=== PATIENT | female | born 1965 | race Caucasian/White ===

== ENCOUNTER 2017-08-03 12:11 | Emergency (ER) | payer OTHER, SELFPAY ==
[2017-08-03 12:12] VITALS: BP 125/80; PULSE 116; RESP 14; TEMP 37.2; O2SAT 100; BMI 22.8
--- NOTE | 2017-08-03 12:42 | ED.VISSUMM ---
- ER Visit Summary Date of Service: 08/03/17 Chief Complaint: Left forehead pain History of Present Illness: The patient is a 52 F male history of anxiety disorder. Patient states for the last several weeks he said sharp shooting stabbing pain that lasts seconds in her forehead and scalp. She denies any falls or trauma. She denies any neurological symptoms. She denies any acute visual change or trouble walking or moving her arms or legs. She is on no blood thinners. There is no family history of brain aneurysms or intracranial bleeds. She saw her primary care physician who told her that he did not know what to do with that nondescript complaint and did not order any testing. She states these are very brief episodes that last seconds. And then resolved. Nothing particularly brings him on or makes them go away. She denies any nausea, fever, sinus congestion or recent trauma. Physical Examination: Well-appearing middle-age female. Vital signs stable afebrile. She does not look septic toxic or in any acute distress. H EENT exam normal. There is no frontal maxillary sinus tenderness is no signs of trauma to her face or scalp. Pupils round reactive light. Extra motions are intact. No facial droop. Normal speech. Neck nontender no lymphadenopathy. Lungs clear to auscultation bilaterally. Heart regular rate and rhythm no murmur rate about 100. Abdomen soft nontender. Extremities moves all 4. Neurovascularly intact. 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 Dorsi plantar flexion intact bilaterally. Fingertip to nose and heel to crespo all within normal limits. Neurologic exam is completely normal. She is awake alert oriented ?3. Normal speech. No droop. Fingertip to nose heel to crespo within normal limits as previously stated. NIH score is 0. She gets up from the bed and ambulates easily without any difficulty has a negative Romberg. Test Results: Because of the patient's she is a completely normal neurologic exam. These are very brief episodes with no neurologic or other physical exam findings. She is comfortable with no testing being done at this time. Emergency Department Course and Treatment: [] Treatment Plan: Patient will be referred to her primary care physician locally. She knows return if feeling worse. Disposition: Discharge Impression: Transient head pain of uncertain etiology This note was generated with [employer] dictation software. It may contain incorrect words, spelling, and punctuation that were not noted in review of the chart prior to signing ED Disposition - Plan for ED Patient: Chief Complaint: Headache Referrals: Aga Cheng PA-C [Primary Care Provider] -
--- NOTE | 2017-08-03 12:45 | ED.DCSUM_ITS ---
- ER Visit Summary Date of Service: 08/03/17 Chief Complaint: Left forehead pain History of Present Illness: The patient is a 52 F male history of anxiety disorder. Patient states for the last several weeks he said sharp shooting stabbing pain that lasts seconds in her forehead and scalp. She denies any falls or trauma. She denies any neurological symptoms. She denies any acute visual change or trouble walking or moving her arms or legs. She is on no blood thinners. There is no family history of brain aneurysms or intracranial bleeds. She saw her primary care physician who told her that he did not know what to do with that nondescript complaint and did not order any testing. She states these are very brief episodes that last seconds. And then resolved. Nothing particularly brings him on or makes them go away. She denies any nausea , fever, sinus congestion or recent trauma. Physical Examination: Well-appearing middle-age female. Vital signs stable afebrile. She does not look septic toxic or in any acute distress. H EENT exam normal. There is no frontal maxillary sinus tenderness is no signs of trauma to her face or scalp. Pupils round reactive light. Extra motions are intact. No facial droop. Normal speech. Neck nontender no lymphadenopathy. Lungs clear to auscultation bilaterally. Heart regular rate and rhythm no murmur rate about 100. Abdomen soft nontender. Extremities moves all 4. Neurovascularly intact. 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 Dorsi plantar flexion intact bilaterally. Fingertip to nose and heel to crespo all within normal limits. Neurologic exam is completely normal. She is awake alert oriented ?3. Normal speech. No droop. Fingertip to nose heel to crespo within normal limits as previously stated. NIH score is 0. She gets up from the bed and ambulates easily without any difficulty has a negative Romberg. Test Results: Because of the patient's she is a completely normal neurologic exam. These are very brief episodes with no neurologic or other physical exam findings. She is comfortable with no testing being done at this time. Emergency Department Course and Treatment: [] Treatment Plan: Patient will be referred to her primary care physician locally. She knows return if feeling worse. Disposition: Discharge Impression: Transient head pain of uncertain etiology This note was generated with [employer] dictation software. It may contain incorrect words, spelling, and punctuation that were not noted in review of the chart prior to signing ED Disposition - Plan for ED Patient: Chief Complaint: Headache Referrals: Aga Cheng PA-C [Primary Care Provider] -
--- NOTE | 2017-08-03 12:45 | ED.DEP ---
ED Disposition - Plan for ED Patient: Disposition: Home or Assisted Living Chief Complaint: Headache Referrals: Kj King MD [NON-STAFF] - 1-2 Weeks Additional Instructions: Follow-up with primary care physician. Next Return to ER feeling worse but today her exam is completely normal. This scalp and head pain may be secondary to inflammation of the nerve. I do not feel any testing today would be of benefit.
== END 2017-08-03 12:55 | disposition home or self-care (01) ==
PROVIDERS: Emergency Provider Emergency Medicine; Family Provider Family Medicine; PCP Family Medicine
DX: R51 Headache (principal); F41.9 Anxiety disorder, unspecified; K21.9 Gastro-esophageal reflux disease without esophagitis; Z90.49 Acquired absence of other specified parts of digestive tract; Z90.710 Acquired absence of both cervix and uterus; Z79.82 Long term (current) use of aspirin; Z79.899 Other long term (current) drug therapy; Z72.0 Tobacco use
CPT/HCPCS: 99282

== ENCOUNTER → 2017-10-09 13:25 | Outpatient (CLI) | payer OTHER, SELFPAY ==
--- NOTE | 2017-10-09 13:27 | STEWCON_ITS ---
Reason For Study: CHEST PAIN Stress Results Protocol: Cole Protocol Maximum Predicted HR: 168 bpm Target HR: 143 bpm% Max imum Predicted HR: 93 % DurationHeart Rate Stage (mm:ss) (bpm) BP BASELINE 75 130/86 STAGE 1 3:00 12 3 110/64 STAGE 2 3:00 13 3 120/70 STAGE 3 3:00 14 6 132/74 STAGE 4 1:00 15 7 / RECOVERY 97 110/60 Stress Duration: 10:00 mm:ss Maximum Stress HR: 157 bpmME TS: 13 Baseline Echocardiogram Findings Stress Echo Wall motion Data Resting WMIntermediate WMStress WM Resting Wall Motion Wall Motion Stress All segments Normal. All segments Hyperkinetic. Ejection Fraction 60 %. Ejection Fraction 70 %. Stress Results Heart rate response: appropriate Blood pressure response: normal resting BP - appropriate response Arrhythmias: none Functional capacity: good Stopped secondary to: leg discomfort. EKG Data The baseline ECG displays normal sinus rhythm. Peak exercise ECG: No obvious ECG changes. Symptoms with Stress No c/o chest discomfort during exercise / recovery. Interpretation Summary Negative (Adequate) Stress Echocardiogram Ordering Physician: Williams Caal Referring Physician: Williams Caal Performed By: Cynthia Hansen, KATIE, RVT
== END ==
PROVIDERS: Family Provider Family Medicine; PCP Family Medicine; Visit Provider Nurse Practitioner Family
DX: R07.9 Chest pain, unspecified (principal)
CPT/HCPCS: 93017; 93350

== ENCOUNTER 2018-10-16 14:38 | Emergency (ER) | payer OTHER, SELFPAY ==
[2018-10-16 14:38] VITALS: BP 122/101; BP 130/91; PULSE 100; PULSE 104; RESP 16; RESP 18; TEMP 36.7; O2SAT 100; O2SAT 97; BMI 23.8
--- NOTE | 2018-10-16 14:55 | RAD_ITS ---
STUDY: X-RAY CHEST REASON FOR EXAM: Female, 53 years old. Tachycardia TECHNIQUE: Single AP portable view of the chest. COMPARISON: 2015 FINDINGS: EKG leads overlie the chest The lungs are clear and expanded. There is no demonstrated pleural abnormality. Normal size heart. Normal mediastinum and thad. Normal visualized pulmonary arteries. Normal visualized aortic arch and descending thoracic aorta. Normal visualized thoracic spine. Normal visualized ribs, clavicles, and shoulders. There is no demonstrated abnormality of the visualized soft tissue structures of the upper abdomen. RAD/Chest 1 View (Portable) IMPRESSION: Normal x-ray examination of the chest. Electronically Signed: Abhay Bueno MD at 15:39 EDT , Service support ,
--- NOTE | 2018-10-16 14:55 | EKG12_ITS ---
Test Reason : PALPITATIONS Blood Pressure : / mmHG Vent. Rate : 086 BPM Atrial Rate : 086 BPM P-R Int : 146 ms QRS Dur : 082 ms QT Int : 380 ms P-R-T Axes : 063 013 064 degrees QTc Int : 454 ms Normal sinus rhythm Normal ECG Confirmed by ALYCE CUTLER ([id number]), assistant film editor RAJEEV ONOFRE ([id number]) on 10/21/2018 2:12:22 PM Referred By: Confirmed By:ALYCE CUTLER
[2018-10-16 14:56] VITALS: O2SAT 98
[2018-10-16 15:06] LABS: Absolute Lymphocyte Count 2.51 X10^3/ul (0.83-4.51); Absolute Neutrophil Count 6.6 X10^3/uL (2.0-7.7); Basophil# 0.03 X10^3/uL; Basophil% 0.3 % (0-1); Eosinophil# 0.11 X10^3/uL; Eosinophils% 1.1 % (0-5); Hemoglobin 14.9 g/dl (12.0-15.0); Lymphocyte # 2.51 X10^3/ul (4.0); Lymphocyte % 25.7 % (19-41); Mean Corp Hgb Conc 33.1 g/gl (32-36); Mean Corpuscular Hgb 29.6 pg (27.0-32.0); Mean Corpuscular Volume 89.5 fL (81-99); Mean Platelet Vol. 11.1 fl (6.2-12.0); Monocyte% 5.1 % (0-10); Neutrophil % 67.7 % (47-70); Platelet Count 310 K/mm3 (150-450); RBC Distribution Width CV 13.8 % (11.6-14.6); RBC Distribution Width SD 44.5 fl (35.1-43.9); Red Blood Count 5.03 M/mm3 (4.2-5.4); White Blood Count 9.8 K/mm3 (4.4-11.0)
[2018-10-16 15:09] LABS: POSITIVE COUNT NO; POSITIVE DIFFERENTIAL NO; POSITIVE MORPHOLOGY NO
--- NOTE | 2018-10-16 15:36 | ED.DCSUM_ITS ---
- ER Visit Summary Date of Service: 10/16/18 Chief Complaint: Palpitations and fatigue History of Present Illness: The patient is a 53 F history of anxiety and reflux. Patient states she just felt tired for the last several weeks. Today she felt like her heart rate was accelerated. She denies any shortness of breath. Denies any chest pain. No exertional symptoms. Says she is worn a Holter monitor for 30 days without any diagnosis. She denies any vomiting, diarrhea, melena or leg swelling. Physical Examination: Well-appearing middle-aged female. Vital signs are stable and afebrile. Pulse ox 98% on room air no signs of hypoxia. HEENT normal. Neck nontender no JVD or lymphadenopathy. Lungs clear to auscultation bilaterally. Heart regular rhythm no murmur. Abdomen is soft and nontender. Patient is moving all 4 extremities. Neurovascular intact. There is no edema. Equal symmetrical radial pulses. Neurologically awake alert with no focal motor deficits. Test Results: CBC normal. BMP normal. Troponin normal. EKG sinus rhythm rate 86 no acute abnormality. Chest x-ray portable one view read both myself and radiologist is unremarkable. TSH was abnormal. The number was 7.01 which is elevated which could signal she has hypothyroidism. She and I discussed this and she will follow-up to have this rechecked. Emergency Department Course and Treatment: Patient with unremarkable exam with a normal sinus rhythm. Complaining of palpitations and fatigue. Repeat exam at 1620 patient is doing well. We discussed all of her test results and follow-up to have her thyroid rechecked. Treatment Plan: Follow-up with her primary care provider for repeat evaluation of her thyroid. I do have that group on page. Disposition: Discharge Impression: Acute palpitations of uncertain etiology Elevated TSH needs further evaluation for possible new onset hypothyroidism. Fatigue This note was generated with [employer] dictation software. It may contain incorrect words, spelling, and punctuation that were not noted in review of the chart prior to signing ED Disposition - Plan for ED Patient: Disposition: Home or Assisted Living Instructions: ED Palpitations Referrals: [facility],Out of [NON-STAFF] - 1 Week if not improving Additional Instructions: All your labs, EKG and chest x-ray were normal today. The only lab that was abnormal was your TSH which is a test for your thyroid and that number was 7.01 which could mean that you are hypothyroid and may need to be started on thyroid medications. This TSH level along with your specific thyroid hormones need to be rechecked. If they are abnormal then you will need to start on thyroid medication most likely. Follow-up with your primary care provider and have your TSH and thyroid hormones rechecked.
--- NOTE | 2018-10-16 15:48 | ED.DEP ---
ED Disposition - Plan for ED Patient: Disposition: Home or Assisted Living Instructions: ED Palpitations Referrals: [facility],Out of [NON-STAFF] - 1 Week if not improving Additional Instructions: All your labs, EKG and chest x-ray were normal today. The only lab that was abnormal was your TSH which is a test for your thyroid and that number was 7.01 which could mean that you are hypothyroid and may need to be started on thyroid medications. This TSH level along with your specific thyroid hormones need to be rechecked. If they are abnormal then you will need to start on thyroid medication most likely. Follow-up with your primary care provider and have your TSH and thyroid hormones rechecked.
[2018-10-16 15:52] LABS: Anion Gap 5 (5-15); BUN 14 mg/dL (7-18); BUN/Creat Ratio 17.4 RATIO (10-20); Chloride 107 mmol/L (98-107); EST Glomerular Filtration Rate 79 mL/min (>60); Est Glom Filt Rate - Afr Amer 96 mL/min (>60); Estimated Creatinine Clearance 61.37 ml/min; Glucose 92 mg/dL (74-106); Potassium 4.2 mmol/L (3.5-5.1); Sodium Level 139 mmol/L (136-145)
[2018-10-16 15:58] VITALS: BP 116/74; PULSE 75; RESP 15; O2SAT 96
[2018-10-16 15:58] LABS: Thyroid Stim Hormone (TSH) 7.01 uIU/mL (0.358-3.74)
[2018-10-16 16:09] VITALS: PULSE 86; RESP 14; O2SAT 98
[2018-10-16 16:43] VITALS: BP 122/84; PULSE 79; RESP 16; O2SAT 99
== END 2018-10-16 16:44 | disposition home or self-care (01) ==
PROVIDERS: Emergency Provider Emergency Medicine; Family Provider Family Medicine; PCP Family Medicine
DX: R00.2 Palpitations (principal); R53.83 Other fatigue; R79.89 Other specified abnormal findings of blood chemistry; F41.9 Anxiety disorder, unspecified; K21.9 Gastro-esophageal reflux disease without esophagitis; Z79.82 Long term (current) use of aspirin; Z79.899 Other long term (current) drug therapy; Z72.0 Tobacco use
CPT/HCPCS: 71045; 80048; 84443; 84484; 85025; 93005; 99284; A4216

== ENCOUNTER → 2019-04-25 15:58 | Outpatient (CLI) | payer OTHER, SELFPAY ==
[2019-04-18 15:33] VITALS: BMI 23.4
[2019-04-25 17:40] LABS: AST(SGOT) 18 U/L (15-37); Alanine Aminotransfer ALT/SGPT 25 U/L (13-56); Albumin, Serum 3.9 g/dL (3.2-5.0); Alkaline Phosphatase 103 U/L (45-117); Bilirubin, Direct 0.09 mg/dL (0.00-0.30); Cholesterol 221 mg/dL (200); Globulin 3.7 g/dL (2.2-4.2); High Density Lipoprotein 61 mg/dL; Protein, Total 7.6 g/dL (6.4-8.2); Triglycerides 147 mg/dL; Very Low Density Lipoprotein 29 mg/dL (5-40)
== END ==
PROVIDERS: Family Provider Family Medicine; PCP Family Medicine; Referring Provider Internal Medicine Cardiovascular Disease; Visit Provider Internal Medicine Cardiovascular Disease
DX: E78.00 Pure hypercholesterolemia, unspecified (principal)
CPT/HCPCS: 36415; 80061; 80076

== ENCOUNTER → 2019-04-29 13:42 | Outpatient (CLI) | payer OTHER, SELFPAY ==
[2019-04-18 15:33] VITALS: BMI 23.4
--- NOTE | 2019-04-29 13:44 | CT_ITS ---
STUDY: CT ABDOMEN AND PELVIS WITH AND WITHOUT CONTRAST REASON FOR EXAM: Female, 53 years old. Hematuria RADIATION DOSAGE (If Supplied By Facility): CTDIvol = ( 10.93 ) mGy, DLP = ( 1295.70 ) mGycm TECHNIQUE: Transaxial images were obtained from the dome of the diaphragm to the symphysis pubis without oral contrast. IV Isovue 370 100 was administered. Venous phase and delayed phase images were acquired. Sagittal and coronal images were reconstructed. Individualized dose optimization techniques were used for this CT. COMPARISON: None. FINDINGS: The visualized lung bases are unremarkable. The visualized portions of the heart are within normal limits. Normal liver. There are surgical clips in the gallbladder fossa consistent with a prior cholecystectomy. Normal spleen. Normal pancreas. Normal bilateral adrenal glands. Normal right kidney. Normal left kidney. No renal stones are identified. No enhancing renal masses are identified. Delayed phase imaging demonstrates no focal lesion within the opacified portions of the renal collecting system. Normal visualized stomach. Normal small intestine. Normal colon. The appendix is visualized and appears normal. There is minimal atherosclerotic calcification of the abdominal aorta, without a demonstrated aneurysm. Normal inferior vena cava. Normal retroperitoneum. Normal urinary bladder. There is absence of the uterus consistent with a prior hysterectomy. Normal abdominal wall. Normal osseous structures. CT/CT Abd/Pelvis W/WO Contrast IMPRESSION: No acute process to explain patient's hematuria. No renal stones are identified. No enhancing renal masses are identified. Delayed phase imaging demonstrates no focal lesion within the opacified portions of the renal collecting system. Electronically Signed: Terrence Winchester, at 14:56 EST Tel , Service support ,
--- NOTE | 2019-04-29 14:16 | ECHOD_ITS ---
Reason For Study: fatigue Procedure This was a 2D Doppler, Color Flow transthoracic echocardiogram. Exam performed in department. Left Ventricle Normal LV size. Left ventricular systolic function is normal. The estimated ejection fraction is 60 %. No evidence for diastolic dysfunction. No regional wall motion abnormalities noted. Right Ventricle Normal RV size. Normal systolic function. Atria Normal left atrium. Normal right atrium. No doppler evidence for ASD. Mitral Valve There is no mitral annular calcification. Normal mitral valve. Trivial mitral valve insufficiency. Tricuspid Valve Normal tricuspid valve. Trivial tricuspid valve insufficiency. Right ventricular systolic pressure estimated to be 27 mmHg. Aortic Valve Trisinus/trileaflet aortic valve. Normal aortic valve. Pulmonic Valve The pulmonic valve is not well visualized. Great Vessels Normal sized aortic root. Pericardium/Pleural No pericardial effusion. MMode/2D Measurements & Calculations LVIDd: 3.6 cm IVSd: 0.83 cm Ao root diam: 3.1 cm LVIDs: 2.3 cm LVPWd: 0.77 cm RVDd: 2.2 cm FS: 34.8 % LAV(MOD-bp): 17.7 ml LA A4 area: 9.7 cm2 LA dimension(2D): 2.3 cm LAV(MOD-bp) Indexed: 11.3 ml/m2 LAV(MOD-sp2): 17.4 ml LAV(MOD-sp4): 17.9 ml RA A4 area: 6.8 cm2 Time Measurements MV dec time: 0.21 sec Doppler Measurements & Calculations MV E max marcelo: 62.0 cm/sec Lat Peak E' Marcelo: 8.0 cm/sec Med Peak E' Marcelo: 8.3 cm/sec MV A max marcelo: 59.0 cm/sec E/E' lat: 7.7 E/E' med: 7.5 MV E/A: 1.1 Ao V2 max: 127.4 cm/sec LV V1 max: 103.5 cm/sec PA V2 max: 77.6 cm/sec Ao max P.5 mmHg LV V1 max P.3 mmHg TR max marcelo: 245.0 cm/sec TR max P.0 mmHg Interpretation Summary Left ventricular systolic function is normal. The estimated ejection fraction is 60 %. Trivial mitral valve insufficiency. Trivial tricuspid valve insufficiency. Right ventricular systolic pressure estimated to be 27 mmHg. No evidence for diastolic dysfunction. Ordering Physician: Tramaine Velez Referring Physician: Aga Cheng Performed By: Serina Goetz, KATIE, RVT
== END ==
PROVIDERS: Family Provider Family Medicine; PCP Family Medicine; Referring Provider Internal Medicine Cardiovascular Disease; Visit Provider Internal Medicine Cardiovascular Disease
DX: R31.9 Hematuria, unspecified (principal); E03.9 Hypothyroidism, unspecified; E78.00 Pure hypercholesterolemia, unspecified; R00.2 Palpitations; R53.83 Other fatigue
CPT/HCPCS: 74178; 93306; Q9967

== ENCOUNTER → 2020-12-23 09:35 | Outpatient (CLI) | payer OTHER, SELFPAY ==
[2020-04-19 15:57] VITALS: BMI 23.8
[2020-12-23 10:49] LABS: AST(SGOT) 19 U/L (15-37); Alanine Aminotransfer ALT/SGPT 26 U/L (13-56); Albumin, Serum 3.8 g/dL (3.2-5.0); Alkaline Phosphatase 111 U/L (45-117); Bilirubin, Direct 0.11 mg/dL (0.00-0.30); Cholesterol 252 mg/dL (200); Globulin 3.7 g/dL (2.2-4.2); High Density Lipoprotein 65 mg/dL; Protein, Total 7.5 g/dL (6.4-8.2); Triglycerides 193 mg/dL; Very Low Density Lipoprotein 39 mg/dL (5-40)
== END ==
PROVIDERS: PCP Family Medicine; Referring Provider Internal Medicine Cardiovascular Disease; Visit Provider Internal Medicine Cardiovascular Disease
DX: E78.00 Pure hypercholesterolemia, unspecified (principal)
CPT/HCPCS: 36415; 80061; 80076

== ENCOUNTER → 2021-03-08 16:46 | Outpatient (CLI) | payer OTHER, SELFPAY ==
--- NOTE | 2021-03-08 16:50 | CT_ITS ---
HISTORY: Lung cancer screening -- 34 pack yr history;current smoker; asymptomatic EXAMINATION: CT Low Dose CT Chest for Lung Cancer Screening TECHNIQUE: Helically acquired images were obtained of the chest. A radiation dose optimization technique was used for this scan. IV Contrast dosage and agent: None. COMPARISON: None FINDINGS: LUNGS, PLEURA AND LARGE AIRWAYS: Scattered apical bullous changes without masses, consolidation, or edema. No pleural effusion or thickening. No pneumothorax. THYROID: No thyroid lesions. HEART AND PERICARDIUM: Heart size is normal. No pericardial effusion. VESSELS: 3.3 cm ectasia ascending aorta. MEDIASTINUM AND GINGER: No mediastinal or hilar adenopathy. Esophagus is unremarkable. No hiatal hernia. UPPER ABDOMEN: Cholecystectomy. BONES: No acute or aggressive abnormality. CT/Low Dose CT Lung Screening IMPRESSION: No acute pulmonary findings. No lung nodules. Lung-RADS score 1. Recommend routine annual screening. Individualized dose optimization techniques were used for this CT. at 1750 Reported and signed by: Gil Mcgee MD Electronically Signed: Gil Mcgee MD at 17:49 EDT Tel , Service support ,
== END ==
PROVIDERS: PCP Family Medicine; Referring Provider Nurse Practitioner Family; Visit Provider Nurse Practitioner Family
DX: Z12.2 Encounter for screening for malignant neoplasm of respiratory organs (principal); F17.200 Nicotine dependence, unspecified, uncomplicated
CPT/HCPCS: 71271

== ENCOUNTER → 2021-06-08 11:33 | Outpatient (CLI) | payer OTHER, SELFPAY ==
[2021-06-08 12:29] LABS: AST(SGOT) 25 U/L (15-37); Alanine Aminotransfer ALT/SGPT 36 U/L (13-56); Albumin, Serum 3.8 g/dL (3.2-5.0); Alkaline Phosphatase 105 U/L (45-117); Bilirubin, Direct 0.07 mg/dL (0.00-0.30); Cholesterol 173 mg/dL (200); Globulin 3.8 g/dL (2.2-4.2); High Density Lipoprotein 67 mg/dL; Protein, Total 7.6 g/dL (6.4-8.2); Triglycerides 155 mg/dL; Very Low Density Lipoprotein 31 mg/dL (5-40)
== END ==
PROVIDERS: PCP Family Medicine; Visit Provider Internal Medicine Cardiovascular Disease
DX: E78.00 Pure hypercholesterolemia, unspecified (principal)
CPT/HCPCS: 36415; 80061; 80076

== ENCOUNTER → 2022-06-01 | Outpatient (CLI) | payer OTHER, SELFPAY ==
--- NOTE | 2022-06-01 10:31 | STE_ITS ---
Reason For Study: Chest Pain Stress Results Protocol: Stress Echocardiogram-Cole Protocol Maximum Predicted HR: 164 bpm Target HR: 139 bpm % Maximum Predicted HR: 86 % DurationHeart Rate Stage (mm:ss) (bpm) BP Comment Baseline 87 106/76Pt denies any chest pain Stage 1 3:00 129 102/70Patient denies any chest pain Stage 2 3:00 130 106/72Patient denies any chest pain Stage 3 2:59 141 110/72Patient complains of mild chest tightness midsternal rated 2/10. Recovery 92 118/68Patient denies any chest pain or palpitations. Stress Duration: 8:59 mm:ss Maximum Stress HR: 141 bpm METS: 10 Baseline Echocardiogram Findings Stress Echo Wall motion Data Resting WM Intermediate WM Stress WM Resting Wall Motion Wall Motion Stress All segments Normal. All segments Hyperkinetic. Ejection Fraction 55 %. Ejection Fraction 65 %. Stress Results Heart rate response: Technically adequate (percent predicted maximal heart rate greater than 85%) Blood pressure response: Normal resting blood pressure-appropriate response Cardiac rhythm: No obvious cardiac ectopy/dysrhythmia Functional capacity: Good Stopped secondary to: Chest discomfort. EKG Data Baseline ECG: Normal sinus rhythm. Peak exercise ECG: No obvious ECG changes. Symptoms with Stress The patient noted chest tightness at peak exercise. ECHO/Stress Test Echo w/o Contrast Interpretation Summary Negative (technically adequate: percent predicted maximal heart rate greater th an 85%) stress echocardiogram Ordering Physician: Tramaine Velez Referring Physician: Tramaine Velez Performed By: Toñito Nails RCS
== END | disposition home or self-care (01) ==
LOC: CVS 10:29
PROVIDERS: PCP Family Medicine; Referring Provider Internal Medicine Cardiovascular Disease; Visit Provider Internal Medicine Cardiovascular Disease
DX: R07.9 Chest pain, unspecified (principal); E78.00 Pure hypercholesterolemia, unspecified
CPT/HCPCS: 93017; 93350

== ENCOUNTER 2022-10-13 14:19 | Emergency (ER) | payer OTHER, SELFPAY ==
[2022-10-13 14:21] VITALS: BP 140/76; PULSE 94; RESP 18; TEMP 35.8; O2SAT 100; BMI 22.8
[2022-10-13 15:04] LABS: Absolute Lymphocyte Count 3.75 X10^3/uL (0.83-4.51); Absolute Neutrophil Count 7.8 X10^3/uL (2.0-7.7); Basophil# 0.05 X10^3/uL; Basophil% 0.4 % (0-1); Eosinophil# 0.16 X10^3/uL; Eosinophils% 1.3 % (0-5); Hematocrit 44.9 % (37-47); Hemoglobin 14.4 g/dL (12.0-15.0); Lymphocyte # 3.75 X10^3/ul (0.83-4.51); Lymphocyte % 29.8 % (19-41); Mean Corp Hgb Conc 32.1 g/dL (32-36); Mean Corpuscular Hgb 30.1 pg (27.0-32.0); Mean Corpuscular Volume 93.9 fL (81-99); Mean Platelet Vol. 10.7 fl (6.2-12.0); Monocyte# 0.84 X10^3/uL; Monocyte% 6.7 % (0-10); NRBC Flagged by Analyzer 0 % (0-5); Neutrophil # 7.75 X10^3/uL (2.7-7.7); Neutrophil % 61.6 % (47-70); Platelet Count 286 K/mm3 (150-450); RBC Distribution Width CV 12.8 % (11.6-14.6); Red Blood Count 4.78 M/mm3 (4.2-5.4); White Blood Count 12.6 K/mm3 (4.4-11.0)
[2022-10-13 15:07] LABS: Bacteria 0 SEEN /hpf (None Seen); Mucous, Urine 0 SEEN /hpf (<or=2+); Red Blood Cells-Urine 0 SEEN /hpf (0-5); Squamous Epithelial Cells - UA 0 SEEN /hpf (5-10); White Blood Cells 0 SEEN /hpf (0-5)
[2022-10-13 15:11] LABS: Color, Urine Yellow (Yellow); Glucose, Dipstick Normal (Normal); Ketone-Dipstick Negative (Negative); Leukocyte Esterase-Dipstick Negative /ul (Negative); Nitrite-Dipstick Negative (Negative); Occult Blood-Urine 10 /ul (Negative); Protein-Dipstick Negative (Negative); Urine Bilirubin Dipstick Negative (Negative); Urine Clarity Clear (Clear); Urine Urobilinogen Normal (Normal); Urine pH 6.5 (5.0 - 8.0)
[2022-10-13 15:17] LABS: Anion Gap 6 (5-15); BUN 16 mg/dL (7-18); BUN/Creat Ratio 19.6 RATIO (10-20); Calcium,Total 9.7 mg/dL (8.5-10.1); Chloride 107 mmol/L (98-107); Creatinine, Serum 0.82 mg/dL (0.55-1.02); EST Glomerular Filtration Rate 77 mL/min (>60); Est Glom Filt Rate - Afr Amer 93 mL/min (>60); Estimated Creatinine Clearance 57.12 ml/min; Glucose 89 mg/dL (74-106); Potassium 3.9 mmol/L (3.5-5.1); Sodium Level 140 mmol/L (136-145)
--- NOTE | 2022-10-13 15:56 | CT_ITS ---
STUDY: CT ABDOMEN AND PELVIS WITH CONTRAST REASON FOR EXAM: Female, 57 years old. Lower abdominal pain greater on the right side. RADIATION DOSAGE (If Supplied By Facility): CTDIvol = ( 13.15 ) mGy, DLP = ( 475.00 ) mGycm TECHNIQUE: IV 100mL Isovue-370 was administered. Transaxial images were obtained from the dome of the diaphragm to the symphysis pubis. Multiplanar coronal and sagittal images were reformatted. Individualized Dose Optimization Techniques Were Used For This CT. COMPARISON: April 29, 2019 FINDINGS: The visualized lung bases are unremarkable. The visualized portions of the heart are within normal limits. Normal liver. There are surgical clips in the gallbladder fossa consistent with a prior cholecystectomy. Normal spleen. Normal pancreas. Normal bilateral adrenal glands. Normal visualized stomach. There is fluid in minimally distended distal small bowel loops. The terminal ileum appears normal. Wandering cecum which lies below the proximal transverse colon. The colon is otherwise unremarkable. The appendix is visualized and appears normal. Normal abdominal aorta. No retroperitoneal adenopathy. Normal right kidney. Normal left kidney. Normal visualized ureters. Normal urinary bladder. Uterus is not visualized. There is soft tissue density along the pelvic side wall centimeter retained ovaries. No pelvic lymphadenopathy. No free air or free fluid is seen within the peritoneal cavity. Normal abdominal wall. Stable degenerative changes of the lumbar spine. CT/Abdomen/Pelvis W IV Cont ONLY IMPRESSION: 1. Mildly prominent distal small bowel loops. Question enteritis. 2. Normal appendix. 3. No other major interval change when compared to the prior examination. Electronically Signed: Bob Zazueta DO at 16:37 EDT Reading Location ID and State: [address] [place] [address] Tel [phone], Service support ,
--- NOTE | 2022-10-13 15:57 | EDS_ITS ---
HPI HPI - GI History of Present Illness Chief Complaint: Abd Pain Informant: patient Narrative Narrative: Patient comes in with complaint of lower abdominal pain. Patient states that her pain started on Sunday. It was slow onset but then got progressively worse. It seemed to be cramping but never go away. She actually left work early on Sunday. Its always been in the low mid to right lower quadrant area. She did go home and try a saline enema. She had moderate stool with that but not a huge amount. But the pain did get better. She states that helped the discomfort but it still going on. It is never improved. It has not gotten as bad as it was Sunday though. She occasionally has some mild nausea but she is able to eat and drink. No blood in the stool. She has never had an obstruction. She has had cholecystectomy and hysterectomy but not oophorectomy. She still has her appendix. No history of chronic bowel disease. She has no urinary symptoms such as change in color or odor or frequency. No blood seen. She has never had a fever that she knows of. Other than this discomfort in the lower abdomen she feels fine. Medication prescription list was reviewed on the computer. None of those are new or different. [facility] Medical History Chest pressure Emphysema lung Encounter for screening for malignant neoplasm of lung in current smoker with 30 pack year history or greater Fatigue Hypothyroidism Palpitations Pure hypercholesterolemia Home Medications aspirin 81 mg chewable tablet 81 mg PO DAILY 08/03/17 [History Last Taken 10/16/18] venlafaxine 75 mg tablet 75 mg PO DAILY 08/03/17 [History Last Taken 10/16/18] levothyroxine 50 mcg tablet 50 mcg PO DAILY 04/18/19 [History Last Taken Unknown] atorvastatin 20 mg tablet 20 mg PO QHS #30 tabs 01/24/22 [Rx Last Taken Unknown] dicyclomine 10 mg capsule 20 mg PO TIDAC PRN abdominal pain #15 CAPSULES 10/13/22 [Rx Last Taken Unknown] ondansetron 4 mg disintegrating tablet 4 mg PO Q8H PRN PRN Nausea #10 tabs 10/13/22 [Rx Last Taken Unknown] Allergy/AdvReac Type Severity Reaction Status Date / Time No Known Allergies Allergy Verified 10/13/22 14:21 Family History Father Myocardial infarction Mother CAD (coronary artery disease) Renal failure Daughter CAD (coronary artery disease) Other Heart disease Surgical History History of left heart catheterization (LHC) (~03/04/09) History of tonsillectomy Hx of cholecystectomy S/P bladder repair S/P GABINO (total abdominal hysterectomy) Social History Smoking Status: Current every day smoker tobacco type: cigarettes Tobacco: How many years used: 34 second hand exposure: No alcohol intake: current alcohol intake frequency: a few times a month Alcohol type: beer and wine substance use type: does not use caffeine: Yes Type: coffee what type of physical activity do you participate in: none emanuel/hoahaoism: Bahai seatbelt use: always do you feel safe at home: Yes ROS ROS ED Constitutional Constitutional ED: Denies chills, fever(s) or subjective ENT ENT ED: Denies sore throat Cardiovascular Cardiovascular: Denies chest pain or palpitations Respiratory/Chest Respiratory/Chest: Denies cough or dyspnea Gastrointestinal Gastrointestinal: Reports abdominal pain, diarrhea and nausea; Denies vomiting Genitourinary Genitourinary ED: Denies dysuria or hematuria Musculoskeletal Musculoskeletal: Denies back pain Integumentary Denies rash Neurologic Neurologic: Denies paresthesias or weakness Endocrine Endocrinology: Denies polydipsia or polyuria Hematologic/Lymphatic Hematologic/Lymphatic: Denies easy bleeding or easy bruising Allergic/Immunologic Allergic/Immunologic ED: Denies urticaria EXAM Physical Exam Narrative Exam Narrative: CONSTITUTIONAL: Patient is nontoxic in appearance. The patient looks comfortable. HEENT: No notable trauma. Mucous membranes minimally dry. No sinus tenderness. No indication of pain with swallowing. EYES: No conjunctival injection. No proptosis. No icterus CARDIOVASCULAR: Regular rate. Regular rhythm. No notable murmur. No JVD. RESPIRATORY: No respiratory distress. Breathing is unlabored. No wheezes. No pain with a deep breath. GASTROINTESTINAL: Not distended. Bowel sounds are slightly increased. She does have some mild lower mid and lower right tenderness. But she has no guarding. No rebound. No palpable mass. No bruit. GENITOURINARY: No CVA tenderness. MUSCULOSKELETAL: Atraumatic. No peripheral edema. No cord. No tenderness along the deep venous system. No asymmetry. NEUROLOGICAL: Patient is alert and appropriate. No focal deficit noted. SKIN: No noted rashes. No diaphoresis. Not jaundiced. PSYCHIATRIC: Patient is calm. Mood is appropriate. Const Vital Signs: 10/13/22 14:21 Temperature 96.5 F L Temperature Source Temporal Pulse Rate 94 Respiratory Rate 18 Blood Pressure 140/76 H Blood Pressure Mean 97 Pulse Ox 100 Oxygen Delivery Method Room Air MDM MDM MDM Narrative Medical decision making narrative: Patient CBC shows just a slight elevation of her white count at 12.6 which is nonspecific. Patient's electrolytes show no marked abnormalities. Patient urinalysis is clean shows no sign of infection. My independent interpretation of her CT of the abdomen shows no sign of diverticulitis. There does appear to be some slight increased fluid in the small bowel but does not look to be obstruction. Final reading sees mildly prominent small bowel distal loops questioning enteritis. Patient's symptoms are of a sense of fullness. Her pain is better than it was when it started. I think this should be self-limited. We will get her Zofran if needed for nausea. I will give her Bentyl to use sparingly if she has cramps. She states she really does not want anything for pain because its not that bad but I will write it just so she has an option. We also discussed coming back if she is developing worsening pain, vomiting fevers blood in the stool or any other concerns. Lab Data Attestation: I reviewed the patient's lab results. Labs: Laboratory Results - last 24 hr 10/13/22 10/13/22 10/13/22 15:00 15:00 15:00 WBC 12.6 H RBC 4.78 Hgb 14.4 Hct 44.9 MCV 93.9 MCH 30.1 MCHC 32.1 RDW Std Deviation 44.0 H RDW Coeff of Rajesh 12.8 Plt Count 286 MPV 10.7 Immature Gran % (Auto) 0.200 Neut % (Auto) 61.6 Lymph % (Auto) 29.8 Allen % (Auto) 6.7 Eos % (Auto) 1.3 Baso % (Auto) 0.4 Absolute Neuts (auto) 7.8 H Absolute Lymphs (auto) 3.75 Nucleated RBC % 0 Sodium 140 Potassium 3.9 Chloride 107 Carbon Dioxide 27.0 Anion Gap 6 BUN 16 Creatinine 0.82 Estim Creat Clear Calc 57.12 Est GFR (MDRD) Af Amer 93 Est GFR (MDRD) Non-Af 77 BUN/Creatinine Ratio 19.6 Glucose 89 Calcium 9.7 Urine Color Yellow Urine Clarity Clear Urine pH 6.5 Ur Specific Mobile 1.030 Urine Protein Negative Urine Glucose (UA) Normal Urine Ketones Negative Urine Occult Blood 10 H Urine Nitrite Negative Urine Bilirubin Negative Urine Urobilinogen Normal Ur Leukocyte Esterase Negative Urine RBC 0 SEEN Urine WBC 0 SEEN Ur Squamous Epith Cells 0 SEEN Urine Bacteria 0 SEEN Urine Mucus 0 SEEN Radiography Diagnostic Testing: Clinical Impression(s) from Imaging Studies Abdomen/Pelvis CT 10/13/22 15:56 IMPRESSION: 1. Mildly prominent distal small bowel loops. Question enteritis. 2. Normal appendix. 3. No other major interval change when compared to the prior examination. Electronically Signed: Bob Zazueta DO at 16:37 EDT Reading Location ID and State: [address] [place] [address] Tel [phone], Service support , Discharge Plan Triage Chief Complaint: Abd Pain ED Provider: Maksim Santos Dx/Rx/DC Orders Clinical Impression: Enteritis, Abdominal pain Instructions: ED Abdominal Pain Unkn Cause Fem, ED Gastroenteritis, Noninfectious Prescriptions: New dicyclomine 10 mg capsule 20 mg PO TIDAC PRN (Reason: abdominal pain) Qty: 15 0RF ondansetron [ondansetron] 4 mg tablet,disintegrating 4 mg PO Q8H PRN PRN (Reason: Nausea) Qty: 10 0RF No Action levothyroxine 50 mcg tablet 50 mcg PO DAILY venlafaxine 75 MG tablet 75 mg PO DAILY aspirin 81 MG tablet,chewable 81 mg PO DAILY atorvastatin 20 mg tablet 20 mg PO QHS Qty: 30 11RF Primary Care Provider: Aga Cheng Referrals: Aga Cheng PA-C [Primary Care Provider] - 3-5 Days if not improving Disposition Disposition: Home, Self Care
[2022-10-13] MEDS: Ondansetron 4 MG/2 ML Vial IV (16:07)
[2022-10-13] MEDS: 0.9% Normal Saline 1,000 ML 1000 ML IV (16:07)
== END 2022-10-13 18:13 | disposition home or self-care (01) ==
PROVIDERS: Emergency Provider Emergency Medicine; PCP Family Medicine; Visit Provider Emergency Medicine
DX: K52.9 Noninfective gastroenteritis and colitis, unspecified (principal); R10.30 Lower abdominal pain, unspecified; F17.210 Nicotine dependence, cigarettes, uncomplicated; E78.00 Pure hypercholesterolemia, unspecified; E03.9 Hypothyroidism, unspecified; Z79.899 Other long term (current) drug therapy; Z79.82 Long term (current) use of aspirin
CPT/HCPCS: 74177; 80048; 81001; 85025; 96374; 99283; J7030; Q9967; J2405

== ENCOUNTER → 2023-06-07 | Outpatient (CLI) | payer OTHER, SELFPAY ==
[2023-06-07 12:34] VITALS: PULSE 84; PULSE 85; PULSE 95; PULSE 97; PULSE 98; O2SAT 96; O2SAT 97; O2SAT 99
--- OUTSIDE RECORDS SUMMARY | 2023-06-07 12:35 | XMS RPT_ITS | CCD ---
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 Name Role Phone Zeke Tai Unavailable Unavailable MD Eli, Frank Page Unavailable Freeman Ramona BHAGAT Primary Care Provider [phone] MCKENNA ANDINO Referring Unavailable [facility] [phone] Prim kathy Care Unavailable MCKENNA ANDINO Referring Unavailable [facility] [phone] Prim kathy Care Unavailable LEO, MANOJ T Admitting Unavailable LEO, MANOJ T Primary Care Unavailable LEO, MANOJ T Attending Unavailable GOLDEN, RAMONA Consulting Unavailable PROVIDER, UNKNOWN Consulting Unavailable [facility] Attending Unavailable [facility] Admitting Unavailable [facility] Primary Care Unavailable [facility] Consulting Unavailable PROVIDER, UNKNOWN Consulting Unavailable JENISE DUNCAN CNP Attending Unavailable [facility] Consulting Unavailable JENISE DUNCAN CNP Admitting Unavailable JENISE DUNCAN CNP Primary Care Unavailable PROVIDER, UNKNOWN Consulting Unavailable LEO, MANOJ T Admitting Unavailable LEO, MANOJ T Primary Care Unavailable LEO, MANOJ T Attending Unavailable [facility] Consulting Unavailable PROVIDER, UNKNOWN Consulting Unavailable [facility] Admitting Unavailable [facility] Primary Care Unavailable [facility] Consulting Unavailable [facility] Attending Unavailable PROVIDER, UNKNOWN Consulting Unavailable Medications Completed/Discontinued Medications Medication Drug Class(es) Dates Sig (Normalized) Sig (Original) aspirin 81 mg oral tablet (2 sources) Platelet Aggregation Inhibitor, Nonsteroidal Anti-inflammatory Drug Start: 03-12-2014 take 1 tablet by mouth once daily ASPIRIN 81 MG TABS One tablet by mouth daily ASPIRIN [id number] Tramaine Velez MD atorvastatin 20 mg oral tablet (4 sources) HMG-CoA Reductase Inhibitor Start: 03-29-2015 End: 12-08-2015 take 1 tablet by mouth once daily ATORVASTATIN CALCIUM 20 MG TABS One tablet by mouth daily ATORVASTATIN CALCIUM [id number] Elo Dawson PA-C estradiol 0.0006 mg/mg topical gel (3 sources) Estrogen Start: 03-22-2016 End: 03-21-2017 ESTROGEL 0.75 MG/1.25 GM (0.06%) GEL 1/2 twice a week insert vaginally ESTRADIOL [id number] Tramaine Velez MD Fish Oils (4 sources) Start: 03-12-2014 take 1 tablet by mouth once daily FISH OIL CAPS One tablet by mouth daily OMEGA-3 FATTY ACIDS CAPS [id number] Tramaine Velez MD Problems Active Problems Problem Classification Problem Date Documented Da te Episodic/Chronic Disorders of lipid metabolism (2 sources) Hyperlipidemia; Translations: [Hyperlipidemia, unspecified] Onset: 03-29-2015 03-29-2015 Chronic Other gastrointestinal disorders (1 source) Irritable bowel syndrome without diarrhea; Translations: [Irritable bowel syndrome without diarrhea] Onset: 11-08-2022 Chronic Other screening for suspected conditions (not mental disorders or infectious disease) (6 sources) Encounter for screening for lipoid disorders; Translations: [Encounter for screening mammogram for malignant neoplasm of breast] Onset: 09-29-2022 Episodic Spondylosis; intervertebral disc disorders; other back problems (1 source) Intervertebral disc disorder of cervical region with myelopathy; Translations: [Cervical disc disorder with myelopathy, mid-cervical region, unspecified level] Chronic Spondylosis; intervertebral disc disorders; other back problems (2 sources) Lumbar radiculopathy; Translations: [Radiculopathy, lumbar region] Episodic Substance-related disorders (5 sources) Tobacco dependence syndrome; Translations: [Nicotine dependence, cigarettes, uncomplicated] Onset: 03-05-2014 03-05-2014 Chronic Thyroid disorders (1 source) Hypothyroidism, unspecified; Translations: [Hypothyroidism, unspecified] Onset: 11-08-2022 Chronic Unclassified (2 sources) Long-term drug therapy; Translations: [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) drug therapy] Onset: 03-29-2015 03-29-2015 Past or Other Problems Problem Classification Problem Date Documented Da te Episodic/Chronic Cardiac dysrhythmias (2 sources) Palpitations; Translations: [Palpitations] Onset: 03-05-2014 03-05-2014 Episodic Malaise and fatigue (2 sources) Fatigue; Translations: [Other fatigue] Onset: 03-12-2014 03-12-2014 Episodic Nonspecific chest pain (2 sources) Tight chest; Translations: [Other chest pain] Onset: 03-12-2014 03-12-2014 Episodic Residual codes; unclassified (2 sources) Family history of ischemic heart disease and other diseases of the circulatory system; Translations: [Family history of ischemic heart disease and other diseases of the circulatory system] 03-05-2014 Episodic Residual codes; unclassified (2 sources) Family history of ischemic heart disease; Translations: [Family history of ischemic heart disease and other diseases of the circulatory system] Onset: 03-05-2014 03-05-2014 Episodic Results Test Name Value Interpretation Reference Range Facil ity Vital Signs Date Time Vital Sign Value Performing Clinician Faci lity 03-21-2017 16:23-0400 BMI (Body Mass Index) 22.29 kg/m2 [facility]ke [facility] Work Phone: 03-21-2017 16:23-0400 BP Diastolic 78 mm[Hg] [facility] Work Phone: 03-21-2017 16:23-0400 BP Systolic 114 mm[Hg] [facility] Work Phone: 03-21-2017 16:23-0400 Height 154.94 cm [facility] Work Phone: 03-21-2017 16:23-0400 Pulse (Heart Rate) 76 /min Zeke Frederick [employer] [facility] Work Phone: 03-21-2017 16:23-0400 Respiratory Rate 16 /min Zeke Frederick [facility] Work Phone: 03-21-2017 16:23-0400 Weight 53.52 kg Zeke Tai [facility] Work Phone: 12-07-2016 13:38-0400 Heart rate 89 /min MD [facility] Work Phone: 03-22-2016 16:01-0400 BMI (Body Mass Index) 22.29 kg/m2 MD [facility] Work Phone: 03-22-2016 16:01-0400 BP Diastolic 60 mm[Hg] MD [facility] Work Phone: 03-22-2016 16:01-0400 BP Systolic 108 mm[Hg] MD [facility] Work Phone: 03-22-2016 16:01-0400 BSA (Body Surface Area) 1.51 m2 MD [facility] Work Phone: 03-22-2016 16:01-0400 Pulse (Heart Rate) 74 /min MD [facility] Work Phone: 03-22-2016 16:01-0400 Respiratory Rate 16 /min MD [facility] Work Phone: 03-22-2016 16:01-0400 Weight 53.52 kg MD [facility] Work Phone: 03-12-2014 15:37-0400 Heart rate 417 ms MD [facility] Work Phone: 03-12-2014 15:14-0400 Height 154.94 cm MD [facility] Work Phone: Encounters Encounter Date Encounter Type Care Provider Facility Start: 01-15-2023 End: 01-15-2023 ambulatory MANOJ BAILEY [facility] Start: 01-09-2023 End: 01-09-2023 ambulatory RAMONA CHENG [facility] Start: 12-26-2022 End: 12-26-2022 ambulatory MANOJ Tran [facility] Start: 11-08-2022 End: 11-08-2022 ambulatory JENISE DUNCAN [facility] Start: 09-29-2022 End: 09-29-2022 ambulatory RAMONA CHENG [facility] Start: 01-27-2022 ambulatory MCKENNA ANDINO [facility] Start: 01-27-2022 End: 01-27-2022 Evaluation and management of inpatient McNa Mr 1 [facility] Start: 01-27-2022 End: 01-27-2022 Subsequent hospital visit by physician McNa 1 [facility] Procedures Date Procedure Procedure Detail Performing Clinician Start: 01-27-2022 Mri spinal canal lum bar w/o contrast material Mckenna Andino DO Work Phone: Start: 03-21-2017 End: 03-21-2017 Follow Up Appt 1 year Tramaine Alvarado Start: 03-21-2017 End: 03-21-2017 PFM Tramaine Velez MD Start: 03-22-2016 End: 09-26-2016 *Hepatic Function Panel Tramaine Velez MD Start: 03-22-2016 End: 03-22-2016 Follow Up Appt 1 year Tramaine Alvarado Start: 03-22-2016 End: 09-26-2016 Lipid 1996 panel - Serum or Plasma Tramaine Velez MD Start: 03-22-2016 End: 03-22-2016 PFM Tramaine Velez MD Start: 03-22-2016 End: 09-26-2016 *Hepatic Function Panel Tramaine Velez MD Start: 03-22-2016 End: 03-22-2016 Follow Up Appt 1 year Tramaine Alvarado Start: 03-22-2016 End: 09-26-2016 Lipid 1996 panel - Serum or Plasma Tramaine Velez MD Start: 03-22-2016 End: 03-22-2016 PFM Tramaine Velez MD Start: 12-08-2015 End: 09-27-2016 *Hepatic Function Panel Elo solomon PA-C Work Phone: Start: 12-08-2015 End: 12-08-2015 Follow Up Appt Other Elo sevilla PA-C Work Phone: Start: 12-08-2015 End: 09-27-2016 Lipid 1996 panel - Serum or Plasma Elo Dawson PA-C Work Phone: Start: 12-08-2015 End: 09-27-2016 *Hepatic Function Panel Elo solomon PA-C Work Phone: Start: 12-08-2015 End: 12-08-2015 Follow Up Appt Other Elo sevilla PA-C Work Phone: Start: 12-08-2015 End: 09-27-2016 Lipid 1996 panel - Serum or Plasma Elo Dawson PA-C Work Phone: Start: 08-25-2015 End: 09-22-2015 24 hour holter monitor Elo ngo PA-C Work Phone: Start: 08-25-2015 End: 09-22-2015 Chest x-ray Elo Dawson PA-C Work Phone: Start: 08-25-2015 End: 08-25-2015 Follow Up Appt 6 weeks Elo ngo PA-C Work Phone: Start: 08-25-2015 End: 08-25-2015 MMM Elo Dawson PA-C Work Phone: Start: 08-25-2015 End: 09-22-2015 24 hour holter monitor Elo ngo PA-C Work Phone: Start: 08-25-2015 End: 09-22-2015 Chest x-ray Elo Dawson PA-C Work Phone: Start: 08-25-2015 End: 08-25-2015 Follow Up Appt 6 weeks Elo ngo PA-C Work Phone: Start: 08-25-2015 End: 08-25-2015 MMM Elo Dawson PA-C Work Phone: Start: 06-29-2015 End: 12-08-2015 *Hepatic Function Panel Tramaine Velez MD Start: 06-29-2015 End: 12-08-2015 Lipid 1996 panel - Serum or Plasma Tramaine Velez MD Start: 06-29-2015 End: 12-08-2015 *Hepatic Function Panel Tramaine Velez MD Start: 06-29-2015 End: 12-08-2015 Lipid 1996 panel - Serum or Plasma Tramaine Velez MD Start: 03-15-2015 End: 03-26-2015 *Hepatic Function Panel Tramaine Velez MD Start: 03-15-2015 End: 03-16-2015 Documentation of current medications Tramaine Velez MD Start: 03-15-2015 End: 03-15-2015 Follow Up Appt 1 year Tramaine Alvarado Start: 03-15-2015 End: 03-26-2015 Lipid 1996 panel - Serum or Plasma Tramaine Velez MD Start: 03-15-2015 End: 03-15-2015 PFM Tramaine Velez MD Start: 03-15-2015 End: 03-26-2015 *Hepatic Function Panel Tramaine Velez MD Start: 03-15-2015 End: 03-16-2015 Documentation of current medications Tramaine Velez MD Start: 03-15-2015 End: 03-15-2015 Follow Up Appt 1 year Tramaine Alvarado Start: 03-15-2015 End: 03-26-2015 Lipid 1996 panel - Serum or Plasma Tramaine Velez MD Start: 03-15-2015 End: 03-15-2015 PFM Tramaine Velez MD Start: 03-12-2014 End: 08-25-2015 24 hour holter monitor Tramaine Velez MD Start: 03-12-2014 End: 03-12-2014 Ecg routine ecg w/least 12 lds w/i&r Tramaine Velez MD Start: 03-12-2014 End: 03-12-2014 Follow Up Appt 1 year Tramaine Alvarado Start: 03-12-2014 End: 03-12-2014 Follow Up Appt Other Tramaine Velez MD Start: 03-12-2014 End: 03-12-2014 PFM Tramaine Velez MD Start: 03-12-2014 End: 08-25-2015 Stress Echocardiogram (treadmill) Tramaine Velez MD Start: 03-12-2014 End: 08-25-2015 24 hour holter monitor Tramaine Velez MD Start: 03-12-2014 End: 03-12-2014 Ecg routine ecg w/least 12 lds w/i&r Tramaine Velez MD Start: 03-12-2014 End: 03-12-2014 Follow Up Appt 1 year Tramaine Alvarado Start: 03-12-2014 End: 03-12-2014 Follow Up Appt Other Tramaine Velez MD Start: 03-12-2014 End: 03-12-2014 PFM Tramaine Velez MD Start: 03-12-2014 End: 08-25-2015 Stress Echocardiogram (treadmill) Tramaine Velez MD Plan of Treatment Date Care Activity Detail Author Start: 11-30-2024 DTaP,Tdap,and Td Vaccines (2 - Td or Tdap) DTaP,Tdap,and Td Vaccines (2 - Td or Tdap) [employer] Start: 02-09-2022 Influenza vaccination Influenza Vaccine (#1) [employer] [facility] Start: 01-12-2022 Adolescent depression screening assessment [facility] Start: 01-12-2022 Hepatitis C screening Hepatitis C Screening [facility] Start: 01-12-2022 HIV screening [facility] Start: 01-12-2022 Lipid panel Cholesterol Screening (Lipid Panel) [facility] Start: 01-12-2022 Screening for malignant neoplasm of breast Breast Cancer Screening [facility] Start: 01-12-2022 Screening for malignant neoplasm of colon Colorectal Cancer Screening: Colonoscopy [facility] Start: 01-12-2022 Social Influencers of Health Screening Social Influencers of Health Screening [employer] Start: 07-24-2021 COVID-19 Vaccine (4 - Booster for Pfizer series) COVID-19 Vaccine (4 - Booster for Pfizer series) [employer] Start: 03-27-2018 End: 03-27-2018 Appointment Appointment [facility] Work Phone: Start: 03-21-2017 End: 03-21-2017 Appointment Appointment [facility] Work Phone: Start: 03-21-2017 End: 03-21-2017 Follow Up Appt 1 year Follow Up Appt 1 year [facility] Work Phone: Start: 03-21-2017 End: 03-21-2017 PFM PFNicolas [facility] Work Phone: Start: 12-25-2016 End: 09-27-2016 *Hepatic Function Panel *Hepatic Function Panel [facility] Work Phone: Start: 12-25-2016 End: 09-27-2016 Lipid 1996 panel *Lipid Profile CC PCP [facility] Work Phone: Start: 12-25-2016 End: 09-27-2016 *Hepatic Function Panel *Hepatic Function Panel [facility] Work Phone: Start: 12-25-2016 End: 09-27-2016 Lipid 1996 panel *Lipid Profile CC PCP [facility] Work Phone: Start: 03-22-2016 End: 09-26-2016 *Hepatic Function Panel *Hepatic Function Panel [facility] Work Phone: Start: 03-22-2016 End: 03-22-2016 Follow Up Appt 1 year Follow Up Appt 1 year [facility] Work Phone: Start: 03-22-2016 End: 09-26-2016 Lipid 1996 panel *Lipid Profile CC PCP [facility] Work Phone: Start: 03-22-2016 End: 03-22-2016 PFM PFM [facility] Work Phone: Start: 03-22-2016 End: 09-26-2016 *Hepatic Function Panel *Hepatic Function Panel [facility] Work Phone: Start: 03-22-2016 End: 03-22-2016 Follow Up Appt 1 year Follow Up Appt 1 year [facility] Work Phone: Start: 03-22-2016 End: 09-26-2016 Lipid 1996 panel *Lipid Profile CC PCP [facility] Work Phone: Start: 03-22-2016 End: 03-22-2016 PFM PFM [facility] Work Phone: Start: 12-08-2015 End: 09-27-2016 *Hepatic Function Panel *Hepatic Function Panel [facility] Work Phone: Start: 12-08-2015 End: 12-08-2015 Follow Up Appt Other Follow Up Appt Other [facility] Work Phone: Start: 12-08-2015 End: 09-27-2016 Lipid 1996 panel *Lipid Profile CC PCP [facility] Work Phone: Start: 12-08-2015 End: 09-27-2016 *Hepatic Function Panel *Hepatic Function Panel [facility] Work Phone: Start: 12-08-2015 End: 12-08-2015 Follow Up Appt Other Follow Up Appt Other [facility] Work Phone: Start: 12-08-2015 End: 09-27-2016 Lipid 1996 panel *Lipid Profile CC PCP [facility] Work Phone: Start: 08-25-2015 End: 09-22-2015 24 hour holter monitor 24 hour holter monitor [facility] Work Phone: Start: 08-25-2015 End: 09-22-2015 Chest x-ray X-Ray, Chest, PA & Lateral [facility] Work Phone: Start: 08-25-2015 End: 08-25-2015 Follow Up Appt 6 weeks Follow Up Appt 6 weeks [facility] Work Phone: Start: 08-25-2015 End: 08-25-2015 MMM MMM [facility] Work Phone: Start: 08-25-2015 End: 09-22-2015 24 hour holter monitor 24 hour holter monitor [facility] Work Phone: Start: 08-25-2015 End: 09-22-2015 Chest x-ray X-Ray, Chest, PA & Lateral [facility] Work Phone: Start: 08-25-2015 End: 08-25-2015 Follow Up Appt 6 weeks Follow Up Appt 6 weeks [facility] Work Phone: Start: 08-25-2015 End: 08-25-2015 MMM MMM [facility] Work Phone: Start: 06-29-2015 End: 12-08-2015 *Hepatic Function Panel *Hepatic Function Panel [facility] Work Phone: Start: 06-29-2015 End: 12-08-2015 Lipid 1996 panel *Lipid Profile CC PCP [facility] Work Phone: Start: 06-29-2015 End: 12-08-2015 *Hepatic Function Panel *Hepatic Function Panel [facility] Work Phone: Start: 06-29-2015 End: 12-08-2015 Lipid 1996 panel *Lipid Profile CC PCP [facility] Work Phone: Start: 2015 Zoster Vaccines (1 of 2) Zoster Vaccines (1 of 2) [facility] Start: 03-15-2015 End: 03-26-2015 *Hepatic Function Panel *Hepatic Function Panel [facility] Work Phone: Start: 03-15-2015 End: 03-15-2015 Follow Up Appt 1 year Follow Up Appt 1 year [facility] Work Phone: Start: 03-15-2015 End: 03-15-2015 Follow Up Appt Other Follow Up Appt Other [facility] Work Phone: Start: 03-15-2015 End: 03-26-2015 Lipid 1996 panel *Lipid Profile CC PCP [facility] Work Phone: Start: 03-15-2015 End: 03-15-2015 PFM PF [facility] Work Phone: Start: 03-15-2015 End: 03-26-2015 *Hepatic Function Panel *Hepatic Function Panel [facility] Work Phone: Start: 03-15-2015 End: 03-15-2015 Follow Up Appt 1 year Follow Up Appt 1 year [facility] Work Phone: Start: 03-15-2015 End: 03-15-2015 Follow Up Appt Other Follow Up Appt Other [facility] Work Phone: Start: 03-15-2015 End: 03-26-2015 Lipid 1996 panel *Lipid Profile CC PCP [facility] Work Phone: Start: 03-15-2015 End: 03-15-2015 PFM PFM [facility] Work Phone: Start: 03-12-2014 End: 03-12-2014 24 hour holter monitor 24 hour holter monitor [facility] Work Phone: Start: 03-12-2014 End: 03-12-2014 Ecg routine ecg w/least 12 lds w/i&r EKG (In office) [facility] Work Phone: Start: 03-12-2014 End: 03-12-2014 Follow Up Appt 1 year Follow Up Appt 1 year [facility] Work Phone: Start: 03-12-2014 End: 03-12-2014 Follow Up Appt Other Follow Up Appt Other [facility] Work Phone: Start: 03-12-2014 End: 03-12-2014 PFM PFM [facility] Work Phone: Start: 03-12-2014 End: 03-12-2014 Stress Echocardiogram (treadmill) Stress Echocardiogram (treadmill) [facility] Work Phone: Start: 03-12-2014 End: 03-12-2014 24 hour holter monitor 24 hour holter monitor [facility] Work Phone: Start: 03-12-2014 End: 03-12-2014 Ecg routine ecg w/least 12 lds w/i&r EKG (In office) [facility] Work Phone: Start: 03-12-2014 End: 03-12-2014 Follow Up Appt 1 year Follow Up Appt 1 year [facility] Work Phone: Start: 03-12-2014 End: 03-12-2014 Follow Up Appt Other Follow Up Appt Other [facility] Work Phone: Start: 03-12-2014 End: 03-12-2014 PFM PFM [facility] Work Phone: Start: 03-12-2014 End: 03-12-2014 Stress Echocardiogram (treadmill) Stress Echocardiogram (treadmill) [facility] Work Phone: Start: 1986 Screening for malignant neoplasm of cervix Cervical Cancer Screening: Pap Smear [facility] Start: 1965 Hepatitis B Vaccines (1 of 3 - 3-dose series) Hepatitis B Vaccines (1 of 3 - 3-dose series) [facility] Immunizations Immunization Date Immunization Notes Care Provider Tatyana grant 03-26-2019 influenza virus vacc ine, unspecified formulation McNa 1 [facility] Payers Date Payer Category Payer Private Health Insurance AELORENZO BELLA [id number] 2021-Present [address] [place] [address] [id number] 2021 Private Health Insurance [id number] 1965 Unknown [id number] 1965 Unknown [id number] 1965 Unknown [id number] 1965 Unknown [id number] 1965 Unknown [id number] 1965 Unknown [id number] 1965 Unknown [id number] Unknown [id number] Social History Date Type Detail Facility Tobacco smoking stat [facility] Tobacco smoking consumption unknown [facility] Start: 1965 Sex Assigned At Not on file [facility] Start: 01-17-2022 End: 01-27-2022 Exposure to SARS-CoV-2 (event) Not sure [facility] Progress note 04-05-2021 Note Date & Type Note Facility 04-05-2021 Note HNO ID: [id number] Author: Lowell Kaufman MD Service: ? Author Type: Physician Type: Progress Notes Filed: 04/05/2021 5:17 PM Note Text: NEW PATIENT HISTORY AND PHYSICAL EXAM HISTORY OF PRESENT ILLNESS: Dinora Grullon is a 55 year old female who presents New patient referred by Dr Shai Delaney for prolapse bladder and rectocele 2004 - Developed JAYCE post Vag deliv. 2006 - TVT secure mini sling A/P repair [id number] - uterine prolapse 2008 - vaginal hys (ovaries in place) 2009 - Bladder suspension ([facility]) [id number] - Dr. Palomo - (no leakage at that time) did have mesh erosion 2013 - AANDP repair and mesh removal. Leakage redeveloped after Mesh removal Concerned she now has another rectocele. Feeling of week pelvic floor musculature. Will have urgency and urge incontinence episodes. Was going to start pelvic floor therapy prior to Covid. Most bothersome is both urge and occasional JAYCE. Can get pain from the prolapse Do you leak with cough, sneeze or exercise Yes Do you leak with urgency such as getting to the restroom on time or with running water Yes How many times do you urinate during the day 5 - 10 How many times do you get up to urinate at night rare How many pads do you wear during the day once Do you wear pads at night No Do you have fecal urgency Rare Do you have fecal incontinence Sometimes Do you have pain with intercourse Yes Do you have urinary leakage with intercourse No What medications have you tried to help your leakage No What surgeries have you had for the above symptoms Bladder Sling but sling removed because mesh ended up in the vaginal area. Possible rectocele and vaginal repair REVIEW OF SYSTEMS: GENERAL:No weight loss, malaise or fevers ALLERGIC/IMMUNOLOGIC: no hay fever or drug allergies HEENT:Negative for frequent or significant headaches, No changes in hearing or vision, no nose bleeds or other nasal problems RESPIRATORY: Negative for cough, hemoptysis, wheezing, COPD, dyspnea or shortness of breath CARDIOVASCULAR: Negative for chest pain, leg swelling, hypertension, CHF or palpitations GASTROINTESTINAL: No nausea, vomiting, or diarrhea GENITOURINARY: See HPI MUSCULOSKELETAL: Negative for joint pain or swelling, back pain or muscle pain NEUROLOGIC:Negative for focal numbness or weakness, headaches and dizziness or syncope. SKIN:Negative for lesions, rash, and itching GLUCOSE UA (POCT) Negative 04/05/2021 BILIRUBIN UA (POCT) Negative 04/05/2021 KETONE UA (POCT) Negative 04/05/2021 SPECIFIC GRAVITY UA (POCT) 1.015 04/05/2021 HEMOGLOBIN/BLOOD UA (POCT) Small 04/05/2021 PH UA (POCT) 5.5 04/05/2021 PROTEIN UA (POCT) Negative 04/05/2021 UROBILINOGEN UA (POCT) 0.2 04/05/2021 NITRITE UA (POCT) Negative 04/05/2021 LEUKOCYTES UA (POCT) Negative 04/05/2021 COLOR UA (POCT) Yellow 04/05/2021 CLARITY UA (POCT) Clear 04/05/2021 MEDICATIONS: levothyroxine (SYNTHROID) 50 mcg tablet Take 50 mcg by mouth once daily. atorvastatin (LIPITOR) 20 mg tablet Take 20 mg by mouth daily at bedtime. Omeprazole 40 mg capsule Take 40 mg by mouth once daily. Aspirin 81 mg tab Take 81 mg by mouth once daily. venlafaxine XR (EFFEXOR XR) 75 mg ORAL 24 hr capsule Take 1 capsule by mouth once daily. Polyethylene Glycol 3350 (MIRALAX) 17 gram/dose ORAL powder Take by mouth as needed. Take 17 gm mixed in 8 oz water once a day. (may use generic) HISTORIES PAST MEDICAL HISTORY Diagnosis Date - Abdominal pain, acute, right lower quadrant - Abdominal pain, other specified site - Benign neoplasm of colon - Complication of anesthesia post anesthesia nausea - Constipation - GERD (gastroesophageal reflux disease) - IBS (irritable bowel syndrome) - Panic disorder - Snoring FAMILY HISTORY Problem Relation Age of Onset - Diabetes Mother kidney dialysis - Heart Father PAST SURGICAL HISTORY Procedure Laterality Date - COLONOSCOP W/ OR W/O [facility] 07/03/2011 Colonoscopy - COLONOSCOP W/ OR W/O [facility] 06/25/2017 repeat in 10 years - DANDC, DIAG AND/OR THERAPEUTIC 2002 Dilation AND curettage - EGD W/O OR W/BRUSH/WASH 07/26/15 EGD - EGD W/O OR W/BRUSH/WASH 06/25/2017 EGD - HEART CATHETERIZATION 03/04/09 - PAST SURGICAL HISTORY OF 11/2006 A/Prepair, bladder suspension - PAST SURGICAL HISTORY OF 07/03/08 breast bx - PAST SURGICAL HISTORY OF 09/2012 Mes removal from 2 prev bladder slings dit to dislodgement and erosion - REMOVAL GALLBLADDER 1995 Cholecystectomy - REMOVAL OF TONSILS,<12 Y/O 1974 Tonsillectomy - SLING OPER STRES INCONTINENCE 05/2010 bladder suspension - TOTAL ABDOM HYSTERECTOMY Hysterectomy, GABINO Social History Tobacco Use - Smoking status: Current Every Day Smoker Packs/day: 0.50 - Smokeless tobacco: Never Used Substance Use Topics - Alcohol use: Yes Comment: ocas - Drug use: No Physical Exam Ht 154.9 cm (5' 1 ) Wt 54.9 kg (121 lb) BMI 22.86 kg/m (more content not included)... [facility] Evaluation note Note Date & Type Note Facility documented in this encounter [facility] Evaluation note Note Date & Type Note Facility documented in this encounter [facility] Summary Purpose Family History No Family History Records FoundNo Family History Records FoundNo Family History Records FoundNo Family History Records Found Advance Directives No Advanced Directives Records FoundNo Advanced Directives Records FoundNo Advanced Directives Records FoundNo Advanced Directives Records Found Reason for Referral Specialty Diagnoses / Procedures Referred By Contac t Referred To Contact Radiology Diagnoses Lumbar radiculopathy Spinal stenosis, lumbar region, with neurogenic claudication Procedures MR Lumbar Spine wo Contrast Mckenna Andino DO [address] [place] [address] [facility] Referral ID Status Reason Start Date Expiration Date V isits Requested Visits Authorized [id number] Authorized 01/12/2022 07/11/2022 1 1 Specialty Diagnoses / Procedures Referred By Contac t Referred To Contact Radiology Diagnoses Cervical disc disorder with myelopathy of mid-cervical region Procedures MR Cervical Spine wo Contrast Mckenna Andino DO [address] [place] [address] [facility] Referral ID Status Reason Start Date Expiration Date V isits Requested Visits Authorized [id number] Authorized 01/12/2022 07/11/2022 1 1 Additional Source Comments INFORMATION SOURCE (unrecogn ized section and content) DATE CREATED AUTHOR AUTHOR'S ORGANIZ ATION 04/07/2021 [facility] DATE CREATED AUTHOR AUTHOR'S ORGANIZ ATION 02/02/2022 [facility] DATE CREATED AUTHOR AUTHOR'S ORGANIZ ATION 01/17/2023 [facility] Reason for Visit (unrecogniz ed section and content) Referral ID Status Reason Start Date Expiration Date V isits Requested Visits Authorized [id number] Authorized 01/12/2022 07/11/2022 1 1 Specialty Diagnoses / Procedures Referred By Contac t Referred To Contact Radiology Diagnoses Cervical disc disorder with myelopathy of mid-cervical region Procedures MR Cervical Spine wo Mckenna Vega DO [address] [place] [address] [facility] [place] Referral ID Status Reason Start Date Expiration Date V isits Requested Visits Authorized [id number] Authorized 01/12/2022 07/11/2022 1 1 Care Teams (unrecognized sec tion and content) [employer] Worker Relationship Specialty Start Date End Date Ramona Cheng PA [address] [place] [address] PCP - General Family Medicine 01/13/22 FOR RECORDS PERTAINING TO PATIENTS WHO ARE OR HAVE BEEN ENROLLED IN A CHEMICAL DEPENDENCY/SUBSTANCEABUSE PROGRAM, SOME INFORMATION MAY BE OMITTED. This clinical summary was aggregated from multiple sources. Caution should be exercised in using it in the provision of clinical care. This summary normalizes information from multiple sources, and as a consequence, information in this document may materially change the coding, format and clinical context of patient data. In addition, data may be omitted in some cases. CLINICAL DECISIONS SHOULD BE BASED ON THE PRIMARY CLINICAL RECORDS. [employer] provides no warranty or guarantee of the accuracy or completeness of information in this document.
--- NOTE | 2023-06-08 09:18 | PCM.PSN.6M ---
PSN 6 Minute Walk Test 6 Minute Walk Test 6 Minute Walk Test: 6 Minute Walk Test PSN:6-Minute Walk Test Start: 06/07/23 12:34 Freq: Status: Active Protocol: RESP.6MINW Document 06/07/23 12:34 MOLINA (Rec: 06/07/23 12:36 MOLINA [id number]) 6 Minute Walk Test Date Performed 06/07/23 Time Performed 12:30 Height 5 ft 1 in Weight: 122 lb Weight in Pounds 122.[address]: Shakir Rangel Assistive device used: None Pre-test Oxygen Delivery Method Room Air Pulse Ox 96 Pulse Rate (60-100) 85 Dyspnea Wallace Scale (0-10) 0 Exertion Wallace Scale (6-20) 6 1st minute Oxygen Delivery Method Room Air Pulse Ox 97 Pulse Rate (60-100) 95 2nd minute Oxygen Delivery Method Room Air Pulse Ox 99 Pulse Rate (60-100) 98 3rd minute Oxygen Delivery Method Room Air Pulse Ox 97 Pulse Rate (60-100) 97 4th minute Oxygen Delivery Method Room Air Pulse Ox 97 Pulse Rate (60-100) 97 5th minute Oxygen Delivery Method Room Air Pulse Ox 97 Pulse Rate (60-100) 98 6th minute Oxygen Delivery Method Room Air Pulse Ox 97 Pulse Rate (60-100) 95 Dyspnea Wallace Scale (0-10) 1 Exertion Wallace Scale (6-20) 11 Post-test Oxygen Delivery Method Room Air Pulse Ox 97 Pulse Rate (60-100) 84 Full Laps Walked 18 Partial Lap, Number of Tiles Walked 16 Total Distance Walked (ft) 1078 Interpretation Interpretation: The patient ambulated 1078 feet over the course of 6 minutes beginning on room air without assistive devices. Pretesting oxygen saturation was noted to be 96% on room air. With ambulation, the kimmy oxygen saturation was 97%. There was no significant exertional oxygen desaturation. Recommendations Recommendations: There is no indication for the use of supplemental oxygen at this time.
== END | disposition home or self-care (01) ==
PROVIDERS: PCP Family Medicine; Referring Provider Internal Medicine Critical Care Medicine; Visit Provider Internal Medicine Critical Care Medicine
DX: J44.9 Chronic obstructive pulmonary disease, unspecified (principal)
CPT/HCPCS: 94618

== ENCOUNTER → 2023-06-12 | Outpatient (CLI) | payer OTHER, SELFPAY ==
--- OUTSIDE RECORDS SUMMARY | 2023-06-12 10:33 | XMS RPT_ITS | CCD ---
Author Name Unknown Address [address] [place] [address] Organization [facility] Care Team Providers Care Account Executive Software Sales Name Role Phone Zeke Tai Unavailable Unavailable MD Eli, Frank Page Unavailable Hampton Ramona BHAGAT Primary Care Provider MCKENNA ANDINO Referring Unavailable [facility] D~[phone] Prim kathy Care Unavailable MCKENNA ANDINO Referring Unavailable [facility] D~[id number] Prim kathy Care Unavailable LEO, MANOJ T Admitting Unavailable LEO, MANOJ T Primary Care Unavailable LEO, MANOJ T Attending Unavailable ANDALE, RAMONA Consulting Unavailable PROVIDER, UNKNOWN Consulting Un[facility] Attending Unavailable [facility] Admitting Unavailable [facility] Primary Care Unavailable [facility] Consulting Unavailable PROVIDER, UNKNOWN Consulting Unavailable JENISE DUNCAN CNP Attending Unavailable [facility] Consulting Unavailable JENISE DUNCAN CNP Admitting Unavailable JENISE DUNCAN CNP Primary Care Unavailable PROVIDER, UNKNOWN Consulting Unavailable LEO, MANOJ T Admitting Unavailable LEO, MANOJ T Primary Care Unavailable LEO, MANOJ T Attending Unavailable [facility] Consulting Unavailable PROVIDER, UNKNOWN Consulting Unavailable [facility] Admitting Unavailable [facility] Primary Care Unavailable [facility] Consulting Unavailable [facility] Attending Unavailable PROVIDER, UNKNOWN Consulting Unavailable Medications Completed/Discontinued Medications Medication Drug Class(es) Dates Sig (Normalized) Sig (Original) aspirin 81 mg oral tablet (2 sources) Platelet Aggregation Inhibitor, Nonsteroidal Anti-inflammatory Drug Start: 03-12-2014 take 1 tablet by mouth once daily ASPIRIN 81 MG TABS One tablet by mouth daily ASPIRIN [id number] Tramaine Velez MD atorvastatin 20 mg oral tablet (4 sources) HMG-CoA Reductase Inhibitor Start: 03-29-2015 End: 12-08-2015 take 1 tablet by mouth once daily ATORVASTATIN CALCIUM 20 MG TABS One tablet by mouth daily ATORVASTATIN CALCIUM [id number] Elo Dawson PA-C estradiol 0.0006 mg/mg topical gel (3 sources) Estrogen Start: 03-22-2016 End: 03-21-2017 ESTROGEL 0.75 MG/1.25 GM (0.06%) GEL 1/2 twice a week insert vaginally ESTRADIOL [id number] Tramaine Velez MD Fish Oils (4 sources) Start: 03-12-2014 take 1 tablet by mouth once daily FISH OIL CAPS One tablet by mouth daily OMEGA-3 FATTY ACIDS CAPS [id number] Tramaine Velez MD Problems Active Problems Problem [...] (2 sources) Long-term drug therapy; Translations: [Other glass mould cleaner (current) drug therapy] Onset: 03-29-2015 03-29-2015 Past [...] Pulse (Heart Rate) 76 /min [facility] Work Phone: 03-21-2017 16:23-0400 Respiratory Rate 16 /min [facility] Work Phone: 03-21-2017 16:23-0400 Weight 53.52 kg Zeke Tai [facility] Work Phone: 12-07-2016 13:38-0400 Heart [...] Start: 01-15-2023 End: 01-15-2023 ambulatory MANOJ BAILEY [facility] Start: 01-09-2023 End: 01-09-2023 ambulatory RAMONA CHENG [facility] Start: 12-26-2022 End: 12-26-2022 ambulatory MANOJ Tran [facility] Start: 11-08-2022 End: 11-08-2022 ambulatory JENISE DUNCAN [facility] Start: 09-29-2022 End: 09-29-2022 ambulatory RAMONA CHENG [facility] Start: 01-27-2022 ambulatory MCKENNA ANDINO [facility] Start: 01-27-2022 End: 01-27-2022 Evaluation and management of inpatient McNa Mr 1 [facility] Start: 01-27-2022 End: 01-27-2022 Subsequent hospital visit by physician McNa 1 [facility] Procedures Date Procedure Procedure Detail Performing [...] Start: 03-15-2015 End: 03-26-2015 *Hepatic Function Panel rTamaine Velez MD Start: 03-15-2015 End: 03-16-2015 Documentation [...] Td Vaccines (2 - Td or Tdap) [facility] Start: 02-09-2022 Influenza vaccination Influenza Vaccine (#1) [facility] Start: 01-12-2022 Adolescent depression screening assessment [facility] Start: 01-12-2022 Hepatitis C screening Hepatitis C Screening [facility] Start: 01-12-2022 HIV screening [facility] Start: 01-12-2022 Lipid panel Cholesterol Screening (Lipid Panel) [facility] Start: 01-12-2022 Screening for malignant neoplasm of breast Breast Cancer Screening [facility] Start: 01-12-2022 Screening for malignant neoplasm of colon Colorectal Cancer Screening: Colonoscopy [facility] Start: 01-12-2022 Social Influencers of Health Screening Social Influencers of Health Screening [facility] Start: 07-24-2021 COVID-19 Vaccine (4 - Booster for Pfizer series) COVID-19 Vaccine (4 - Booster for Pfizer series) [facility] Start: 03-27-2018 End: 03-27-2018 Appointment Appointment [facility] Work Phone: Start: 03-21-2017 End: 03-21-2017 Appointment Appointment [facility] Work Phone: Start: 03-21-2017 End: 03-21-2017 Follow Up Appt 1 year Follow Up Appt 1 year [facility] Work Phone: Start: 03-21-2017 End: [...] Lipid 1996 panel *Lipid Profile CC PCP [facility] Work Phone: Start: 03-22-2016 End: 09-26-2016 *Hepatic Function Panel *Hepatic Function Panel [facility] Work Phone: Start: 03-22-2016 End: 03-22-2016 Follow Up Appt 1 year Follow Up Appt 1 year [facility] Work Phone: Start: 03-22-2016 End: [...] Lipid 1996 panel *Lipid Profile CC PCP [facility] Work Phone: Start: 03-22-2016 End: 03-22-2016 PFM PFM [facility] Work Phone: Start: 12-08-2015 End: 09-27-2016 *Hepatic Function Panel *Hepatic Function Panel [facility] Work Phone: Start: 12-08-2015 End: 12-08-2015 Follow Up Appt Other Follow Up Appt Other [facility] Work Phone: Start: 12-08-2015 End: 09-27-2016 Lipid 1996 panel *Lipid Profile CC PCP [facility] Work Phone: Start: 12-08-2015 End: 09-27-2016 *Hepatic Function Panel *Hepatic Function Panel [facility] Work Phone: Start: 12-08-2015 End: 12-08-2015 Follow Up Appt Other Follow Up Appt Other [facility] Work Phone: Start: 12-08-2015 End: 09-27-2016 Lipid 1996 panel *Lipid Profile CC PCP [facility] Work Phone: Start: 08-25-2015 End: 09-22-2015 24 hour holter monitor 24 hour holter monitor [facility] Work Phone: Start: 08-25-2015 End: 09-22-2015 Chest x-ray X-Ray, Chest, PA & Lateral [facility] Work Phone: Start: 08-25-2015 End: 08-25-2015 Follow Up Appt 6 weeks Follow Up Appt 6 weeks [facility] Work Phone: Start: 08-25-2015 End: 08-25-2015 MMM MMM [facility] Work Phone: Start: 08-25-2015 End: 09-22-2015 24 hour holter monitor 24 hour holter monitor [facility] Work Phone: Start: 08-25-2015 End: 09-22-2015 Chest x-ray X-Ray, Chest, PA & Lateral [facility] Work Phone: Start: 08-25-2015 End: 08-25-2015 Follow Up Appt 6 weeks Follow Up Appt 6 weeks [facility] Work Phone: Start: 08-25-2015 End: 08-25-2015 MMM MMM [facility] Work Phone: Start: 06-29-2015 End: 12-08-2015 *Hepatic Function Panel *Hepatic Function Panel [facility] Work Phone: Start: 06-29-2015 End: 12-08-2015 Lipid 1996 panel *Lipid Profile CC PCP [facility] Work Phone: Start: 06-29-2015 End: 12-08-2015 *Hepatic Function Panel *Hepatic Function Panel [facility] Work Phone: Start: 06-29-2015 End: 12-08-2015 Lipid 1996 panel *Lipid Profile CC PCP [facility] Work Phone: Start: 2015 Zoster Vaccines (1 of 2) Zoster Vaccines (1 of 2) [facility] Start: 03-15-2015 End: 03-26-2015 *Hepatic Function Panel *Hepatic Function Panel [facility] Work Phone: Start: 03-15-2015 End: 03-15-2015 Follow Up Appt 1 year Follow Up Appt 1 year [facility] Work Phone: Start: 03-15-2015 End: 03-15-2015 Follow Up Appt Other Follow Up Appt Other [facility] Work Phone: Start: 03-15-2015 End: 03-26-2015 Lipid 1996 panel *Lipid Profile CC PCP [facility] Work Phone: Start: 03-15-2015 End: 03-15-2015 PFM PF [facility] Work Phone: Start: 03-15-2015 End: 03-26-2015 *Hepatic Function Panel *Hepatic Function Panel [facility] Work Phone: Start: 03-15-2015 End: 03-15-2015 Follow Up Appt 1 year Follow Up Appt 1 year [facility] Work Phone: Start: 03-15-2015 End: 03-15-2015 Follow Up Appt Other Follow Up Appt Other [facility] Work Phone: Start: 03-15-2015 End: 03-26-2015 Lipid 1996 panel *Lipid Profile CC PCP [facility] Work Phone: Start: 03-15-2015 End: 03-15-2015 PFM PFM [facility] Work Phone: Start: 03-12-2014 End: 03-12-2014 24 hour holter monitor 24 hour holter monitor [employer] Work Phone: Start: 03-12-2014 End: 03-12-2014 Ecg routine ecg w/least 12 lds w/i&r EKG (In office) [employer] Work Phone: Start: 03-12-2014 End: 03-12-2014 Follow Up Appt 1 year Follow Up Appt 1 year [employer] Work Phone: Start: 03-12-2014 End: 03-12-2014 Follow Up Appt Other Follow Up Appt Other [employer] Work Phone: Start: 03-12-2014 End: 03-12-2014 PFM PFM [employer] Work Phone: Start: 03-12-2014 End: 03-12-2014 Stress Echocardiogram (treadmill) Stress Echocardiogram (treadmill) [employer] Work Phone: Start: 03-12-2014 End: 03-12-2014 24 hour holter monitor 24 hour holter monitor [employer] Work Phone: Start: 03-12-2014 End: 03-12-2014 Ecg routine ecg w/least 12 lds w/i&r EKG (In office) [employer] Work Phone: Start: 03-12-2014 End: 03-12-2014 Follow Up Appt 1 year Follow Up Appt 1 year [employer] Work Phone: Start: 03-12-2014 End: 03-12-2014 Follow Up Appt Other Follow Up Appt Other [employer] Work Phone: Start: 03-12-2014 End: 03-12-2014 PFM PFM [employer] Work Phone: Start: 03-12-2014 End: 03-12-2014 Stress Echocardiogram (treadmill) Stress Echocardiogram (treadmill) [employer] Work Phone: Start: 1986 Screening for malignant neoplasm of cervix Cervical Cancer Screening: Pap Smear [facility] Start: 1965 Hepatitis B Vaccines (1 of 3 - 3-dose series) Hepatitis B Vaccines (1 of 3 - 3-dose series) [facility] Immunizations Immunization Date Immunization Notes Care Provider Tatyana grant 03-26-2019 influenza virus vacc ine, unspecified formulation McNa 1 [facility] Payers Date Payer Category Payer Private Health Insurance AELORENZO BELLA [id number] 2021-Present [address] [place] [address] [id number] 2021 Private Health Insurance [id number] 1965 Unknown [id number] 1965 Unknown [id number] 1965 Unknown [id number] 1965 Unknown [id number] 1965 Unknown [id number] 1965 Unknown [id number] 1965 Unknown [id number] Unknown [id number] Social History Date Type Detail Facility Tobacco smoking stat [facility] Tobacco smoking consumption unknown [facility] Start: 1965 Sex Assigned At Not on file T [facility] Start: 01-17-2022 End: 01-27-2022 Exposure to SARS-CoV-2 (event) Not sure [facility] Progress note 04-05-2021 Note Date & Type Note Facility 04-05-2021 Note HNO ID: [id number] Author: Lowell Kaufman MD Service: ? Author [...] - TVT secure mini sling A/P repair [id number] - uterine prolapse 2008 - vaginal hys (ovaries in place) 2009 - Bladder suspension ([facility]) [id number] - Dr. Palomo - (no leakage at [...] Laterality Date - COLONOSCOP W/ OR W/O [facility] SPEC 07/03/2011 Colonoscopy - COLONOSCOP W/ OR W/O [facility] SPEC 06/25/2017 repeat in 10 years - [...] kg/m (more content not included)... [facility] Evaluation note Note Date & Type Note Facility documented in this encounter [facility] Evaluation note Note Date & Type Note Facility documented in this encounter [facility] Summary Purpose Family History No [...] Mckenna Andino DO [address] [place] [address] [facility] Referral ID Status Reason Start Date Expiration Date V isits Requested Visits Authorized [id number] Authorized 01/12/2022 07/11/2022 1 1 Specialty Diagnoses / Procedures Referred By Contac t Referred To Contact Radiology Diagnoses Cervical disc disorder with myelopathy of mid-cervical region Procedures MR Cervical Spine wo Contrast Mckenna Andino DO [address] [place] [address] [facility] Referral ID Status Reason Start Date Expiration Date V isits Requested Visits Authorized [id number] Authorized 01/12/2022 07/11/2022 1 1 Additional Source Comments INFORMATION SOURCE (unrecogn ized section and content) DATE CREATED AUTHOR AUTHOR'S ORGANIZ ATION 04/07/2021 [facility] DATE CREATED AUTHOR AUTHOR'S ORGANIZ ATION 02/02/2022 [facility] DATE CREATED AUTHOR AUTHOR'S ORGANIZ ATION 01/17/2023 [facility] Reason for Visit (unrecogniz ed section and content) Referral ID Status Reason Start Date Expiration Date V isits Requested Visits Authorized [id number] Authorized 01/12/2022 07/11/2022 1 1 Specialty Diagnoses / Procedures Referred By Contac t Referred To Contact Radiology Diagnoses Cervical disc disorder with myelopathy of mid-cervical region Procedures MR Cervical Spine wo Mckenna Vega DO [address] [place] [address] [facility] [place] Referral ID Status Reason Start Date Expiration Date V isits Requested Visits Authorized [id number] Authorized 01/12/2022 07/11/2022 1 1 Care Teams (unrecognized sec tion and content) Account Executive Software Sales Relationship Specialty Start Date End Date Ramona Cheng PA [address] [place] [address] PCP - General Family Medicine [...] BE BASED ON THE PRIMARY CLINICAL RECORDS. [employer] provides no warranty or guarantee of the accuracy or completeness of information in this document.
--- NOTE | 2023-06-13 05:41 | PFTCOMP_ITS ---
COMPLETE PULMONARY FUNCTION TEST INTERPRETATION Brief HPI: Patient is a 57-year-old female, currently under the care of Dr. Rangel, who presents to [facility] for complete pulmonary function tests secondary to diagnosis of COPD. Respiratory therapist reports good effort and reproducible results. Interpretation: Forced expiration spirometry shows no large airways obstructive ventilatory defect with an FEV1 of 79% predicted. There is no significant bronchodilator response by strict ATS criteria. Spirograms are of good quality and plateau slowly, indicating slowly emptying areas of the lungs. The respiratory flow volume loop shows decreased expiratory flow rates at high lung volumes c onsistent with small airways obstruction. Lung volumes by body plethysmography show an elevated total lung capacity at 5.23 L, 118% predicted. FRC and RV are elevated out of proportion. Lung volume measurements are consistent with hyperinflation and air-trapping. Diffusion capacity by carbon monoxide is normal at 87% predicted. The airway resistance is normal. No previous pulmonary function tests were available for review. Impression: Normal spirometry without bronchodilator response and DLCO, but some signs of air trapping with hyperinflation on lung volumes
== END | disposition home or self-care (01) ==
PROVIDERS: PCP Family Medicine; Referring Provider Internal Medicine Critical Care Medicine; Visit Provider Internal Medicine Critical Care Medicine
DX: J44.9 Chronic obstructive pulmonary disease, unspecified (principal)
CPT/HCPCS: 94060; 94726; 94729

== ENCOUNTER → 2023-07-19 | Outpatient (CLI) | payer OTHER, SELFPAY | END | disposition home or self-care (01) | LOC: SL 13:39 | PROVIDERS: PCP Family Medicine; Visit Provider Nurse Practitioner Acute Care | DX: G47.10 Hypersomnia, unspecified (principal) | CPT/HCPCS: 95806 ==

== ENCOUNTER → 2025-04-07 | Outpatient (CLI) | payer OTHER, SELFPAY ==
--- NOTE | 2025-04-07 16:00 | MRI_ITS ---
PROCEDURE: MRI/Spine Lumbar (Routine)
== END | disposition home or self-care (01) ==
LOC: MRI 15:30
PROVIDERS: PCP Family Medicine; Referring Provider Chiropractor; Visit Provider Chiropractor
DX: M51.17 Intervertebral disc disorders with radiculopathy, lumbosacral region (principal)
CPT/HCPCS: 72148